=== PATIENT | female | born 1980 | race Caucasian/White ===

== ENCOUNTER 2019-08-07 14:40 | Emergency (ER) | payer SELFPAY ==
[2019-08-07 14:45] VITALS: BP 160/90; PULSE 91; RESP 16; TEMP 36.6; O2SAT 100; BMI 29.9
--- NOTE | 2019-08-07 14:49 | DI.RAD.S_ITS ---
PROCEDURE: XR CHEST 2V INDICATIONS: wheezing TECHNIQUE: 2 views of the chest were acquired. COMPARISON: None. FINDINGS: Surgical changes and devices: None. Lungs and pleura: There may be developing airspace disease within the left lung base. No large effusion or pneumothorax is evident. Mediastinum: Mediastinal contours are normal. Heart size is normal. Bones and chest wall: No suspicious bony abnormalities. Soft tissues appear unremarkable. IMPRESSION: Probable left lower lobe pneumonia. Dictated by: eGn Ramos M.D. on 08/07/2019 at 14:09 Approved by: Gen Ramos M.D. on 08/07/2019 at 14:10
--- NOTE | 2019-08-07 16:30 | ED_ITS ---
HPI - URI/Sore Throat <RAMONITA Moreno - Last Filed: 08/08/19 00:51> General Chief Complaint: Upper Respiratory Symptoms Stated Complaint: wheezing Time Seen by Provider: 08/07/19 16:18 Source: patient Mode of arrival: Ambulatory Limitations: no limitations History of Present Illness HPI Narrative: This is a 38-year-old female, nonsmoker, who denies chronic medical condition presents to ED with significant other with chief complain of wheezing, chest tightness with coughing, productive cough for 1 week. Patient denies fever, chills, nausea or vomiting, myalgia, sore throat. Patient denies ill contacts or known exposure to coronavirus. Patient states she has been quarantine at home with limited contact with others. Reports dyspnea worse during in the morning when she wakes up from sleep. Patient denies recent weight gain, calf pain, swelling to her legs. Related Data Previous Rx's Medication Instructions Recorded doxycycline hyclate 100 mg PO BID 7 Days #14 cap 08/07/19 Review of Systems <RAMONITA Moreno - Last Filed: 08/08/19 00:51> Review of Systems Narrative: General: Denies fever, chills, fatigue, malaise, sweats. HEENT: Denies sinus pain, ear pain, sore throat, difficulty swallowing, dizziness. Respiratory: See HPI Cardiovascular: Denies chest pain, palpitations, orthopnea, edema. Gastrointestinal: Denies nausea, vomiting, abdominal pain, diarrhea, constip ation, melena. : Denies dysuria, frequency, incontinence, hematuria, urinary retention. Musculoskeletal: Denies weakness, joint pain or bony pain. Skin: Denies rash, skin lesions, or other. Neurologic: Denies weakness, headache, numbness, change in speech, confusion, seizures, incoordination. Psychiatric: No concerning psychosocial issues. 12-point review of systems is negative except for those stated above. Patient History <RAMONITA Moreno - Last Filed: 08/08/19 00:51> Medical History (Updated 08/07/19 @ 16:51 by RAMONITA Moreno) No significant past medical history (Acute) Surgical History (Updated 08/07/19 @ 16:33 by RAMONITA Moreno) No pertinent past surgical history (Acute) Social History (Updated 08/07/19 @ 16:33 by RAMONITA Moreno) Smoking Status: Never smoker Substance Use Type: marijuana Exam <RAMONITA Moreno - Last Filed: 08/08/19 00:51> Narrative Exam Narrative: GEN: Alert, oriented x 3, well appearing and nourished, and in no acute distress. Head: Normal cephalic, atraumatic. No scalp or temporal tenderness, palpable mass or rash. EYES: Pupils are equal, round, and reactive to light and accommodation. Extraocular muscles are intact bilaterally. There is no subconjunctival hemorrhage, exudate and sclera non-icteric. ENT: Bilateral auditory canals and tympanic membranes clear. Hearing grossly intact. Nose without bleeding, purulent discharge or deviation. Facial sinuses nontender to palpate. Mucous membrane moist, no mucosal lesion. Throat without erythema, tonsillar hypertrophy or exudate. Uvula in midline, airway patent. Neck: Trachea in midline. No JVD, non-tender without lymphadenopathy. No masses or thyroid megaly. Supple, non-tender and no meningeal signs. CARDIAC: Normal regular rate and rhythm without murmurs, gallops, or rubs. No ch est wall tenderness. No peripheral edema, cyanosis or pallor. Capillary refill is less than 2 seconds. RESPIRATORY: Lungs are wheezing to auscultate bilaterally worse in right lobes. No cough, rales, or rhonchi. No stridor, respiratory distress, increase work of breathing, or accessary muscle used. ABD: Abdomen soft, nontender and non-distended. No guarding or rebound tenderness to palpate. Bowel sounds are normal in all 4 quadrants. There is no palpable masses or organomegaly. EXT: Full painless ROM of all extremities with no loss of sensation, strength, effusion or edema. SKIN: Warm, dry, normal color for patient. No erythema, lesions or rash over visible areas. BACK: Nontender without deformity or crepitance. No flank tenderness. NEUROLOGICAL: Alert and oriented to place, time and person. Sensation and motor function intact bilaterally. No facial droops, dysphasia. PSYCHIATRIC: Good judgement and reason, without hallucinations, abnormal affect or abnormal behaviors during the examination. Patient is not suicidal. Initial Vital Signs Initial Vital Signs: Vital Signs Temperature 98 F 08/07/19 14:45 Pulse Rate 91 H 08/07/19 14:45 Respiratory Rate 16 08/07/19 14:45 Blood Pressure 160/90 H 08/07/19 14:45 Pulse Oximetry 100 08/07/19 14:45 <Katie Cervantes DO - Last Filed: 08/10/19 11:46> Initial Vital Signs Initial Vital Signs: Vital Signs Temperature 98 F 08/07/19 14:45 Pulse Rate 91 H 08/07/19 14:45 Respiratory Rate 16 08/07/19 14:45 Blood Pressure 160/90 H 08/07/19 14:45 Pulse Oximetry 100 08/07/19 14:45 Scores <RAMONITA Moreno - Last Filed: 08/08/19 00:51> qSOFA Altered Mental Status (GCS <15): No Respiratory rate greater than/equal to 22: No Systolic blood pressure less than or equal to 100: No qSOFA Total: 0 0-1 Not High Risk 1-3 High risk Course <RAMONITA Moreno - Last Filed: 08/08/19 00:51> Orders Ordered: Discontinued Medications Albuterol (Ventolin Hfa) 2 puff INH NOW ONE Stop: 08/07/19 16:29 Last Admin: 08/07/19 16:44 Dose: 2 puff Documented by: KALEIGH Doxycycline Hyclate (Vibramycin) 100 mg PO NOW ONE Stop: 08/07/19 16:29 Last Admin: 08/07/19 17:20 Dose: 100 mg Documented by: CHARLES Vital Signs Vital signs: Vital Signs - 8 hr 08/07/19 17:42 08/07/19 17:46 Respiratory Rate 16 18 Blood Pressure 181/98 H Blood Pressure [Left Arm] 181/98 H <Katie Cervantes DO - Last Filed: 08/10/19 11:46> Orders Ordered: Discontinued Medications Albuterol (Ventolin Hfa) 2 puff INH NOW ONE Stop: 08/07/19 16:29 Last Admin: 08/07/19 16:44 Dose: 2 puff Documented by: KALEIGH Doxycycline Hyclate (Vibramycin) 100 mg PO NOW ONE Stop: 08/07/19 16:29 Last Admin: 05/16/20 17:20 Dose: 100 mg Documented by: CHARLES Vital Signs Vital signs: Vital Signs - 8 hr 08/07/19 17:42 08/07/19 17:46 Respiratory Rate 16 18 Blood Pressure 181/98 H Blood Pressure [Left Arm] 181/98 H [facility] - URI/Sore Throat <Scout RAMONITA Robertson - Last Filed: 08/08/19 00:51> Differential Diagnosis Differential diagnosis: Likely upper respiratory infection, viral infection, bronchitis and other (Pneumonia) Medical Records Attestation: I reviewed the patient's medical records. Imaging Data Chest x-ray: Radiologist's Impression: [address] [address] XRay Report Signed Patient: Aurelia Mansfield [facility]#: [id number] : 1980Acct:[id number] Age/Sex: 38 / FDate of Service: 08/07/19 Loc: ED Accession Number: [id number] Procedure: XR chest 2V Ordering Provider: Katie Cervantes D.O. PROCEDURE: XR CHEST 2V INDICATIONS: wheezing TECHNIQUE: 2 views of the chest were acquired. COMPARISON: None. FINDINGS: Surgical changes and devices: None. Lungs and pleura: There may be developing airspace disease within the left lung base. No large effusion or pneumothorax is evident. Mediastinum: Mediastinal contours are normal. Heart size is normal. Bones and chest wall: No suspicious bony abnormalities. Soft tissues appear unremarkable. IMPRESSION: Probable left lower lobe pneumonia. Dictated by: Gen Ramos M.D. on 08/07/2019 at 14:09 Approved by: Gen Ramos M.D. on 08/07/2019 at 14:10 [facility] Narrative Medical decision making narrative: This is 38 year old female who presented with productive cough, chest tightness and wheezing for 1 week. Patient denies ill contacts and denies fever, chills, nausea or vomiting. Lung sounds wheeze to auscultate in all lobes without increased work of breathing. X-ray test shows probable left lower lobe pneumonia. Patient was treated with Albuterol inhaler with spacer which improved wheezing and her symptoms. The patient was treated with 1st dose of doxycycline before discharged to home and remaining prescription. Return precautions were discussed with patient and patient verbalized understanding in agreement with treatment plan. Discharge Plan Departure Patient Disposition: Home Clinical Impression: Bilateral wheezing Pneumonia Qualifiers: Pneumonia type: due to unspecified organism Laterality: left Lung location: lower lobe of lung Qualified Code(s): J18.9 - Pneumonia, unspecified organism Discharge Date/Time: 08/07/19 17:46 Instructions: DI for Pneumonia -- Adult Activity Restrictions/Additional Instructions: You have been diagnosed with [possible left lower lobe pneumonia and wheezing]. What to do: *Take your medications as directed. You are medicated with 1st dose of doxycycline while in ED. please take this medication twice a day for next 7 days to treat pneumonia and use inhaler with spacer that has been provided to you for excessive cough, chest tightness, wheezing 2 puffs every 4-6 hours as needed. Please try to stop smoking. Doxycycline has been transmitted to [facility] in [place]. *Follow up with your primary care provider in 2-3 days, call for an appointment. Let them know you were seen in the ED and that we asked you to be seen in follow up. *Return to ED if you have any new, worsening, or concerning symptoms, such as [chest pain, breathing difficulty, unable to tolerate fluids, high fever, or any acute concerns]. Prescriptions: New doxycycline hyclate 100 mg capsule 100 mg PO BID 7 Days Qty: 14 RF: 0 Referrals: [facility] Resources [Outside]
[2019-08-07 16:44] VITALS: O2SAT 98
[2019-08-07] MEDS: ALBUTEROL HFA 60 PUFF/8 GM INH INH (16:44)
[2019-08-07] MEDS: DOXYCYCLINE HYCLATE 100 MG TABLET PO (17:20)
[2019-08-07 17:42] VITALS: BP 181/98; RESP 16
[2019-08-07 17:46] VITALS: BP 181/98; RESP 18
== END 2019-08-07 17:46 | disposition home or self-care (01) ==
PROVIDERS: Emergency Provider Nurse Practitioner Family
DX: J18.9 Pneumonia, unspecified organism (principal); R06.2 Wheezing
CPT/HCPCS: 71046; 94640; 99283